=== PATIENT | female | born 1980 | race American Indian/Alaskan Native ===

== ENCOUNTER 2018-10-11 19:46 | Inpatient (IN) | payer OTHER ==
[2018-10-11] MEDS ORDERED: SUBLIMAZE IV PRN (22:41)
[2018-10-11] MEDS ORDERED: STADOL IV PRN (22:41)
[2018-10-11] MEDS ORDERED: XYLOCAINE 2% INFILTRATI ONE (22:41)
[2018-10-11] MEDS ORDERED: BRETHINE IVP PRN (22:41)
[2018-10-11] MEDS ORDERED: BRETHINE SUB-Q PRN (22:41)
[2018-10-11] MEDS ORDERED: MINERAL OIL PO PRN (22:41)
[2018-10-11] MEDS ORDERED: LACTATED RINGERS 1,000 ML IV SCH (23:00)
[2018-10-11] MEDS ORDERED: PITOCin/NS 20 UNIT/1000ML DRIP 20 UNITS/1,000 ML BAG IV SCH (23:00)
[2018-10-11 23:49] LABS: Hematocrit 28.5 % (30.3-42.9); Mean Corpuscular HGB Conc 32 % (30-34); Mean Corpuscular Volume 83 fl (79-97); Platelet Count 242 K/mm3 (140-440); Red Blood Count 3.45 M/mm3 (3.65-5.03)
[2018-10-12] MEDS ORDERED: NARCAN 2 MG/2 ML IV PRN (02:00)
[2018-10-12] MEDS ORDERED: fentaNYL-BUPIV 2 MCG/ML-0.125% 200 MCG/100 ML BAG EPIDURAL SCH (02:00)
[2018-10-12] MEDS ORDERED: XYLOCAINE 2% INFILTRATI ONE (04:28)
--- NOTE | 2018-10-12 04:46 | History and Physical Report ---
History of Present Illness Date of examination: 10/11/18 Date of admission: 10/11/18 23:34 Chief complaint: I'm having contractions History of present illness: Patient is a 37 year old who presents at 39.2 weeks with EDC 10/16/2018. Her course was complicated by late presentation to care in the 2nd trimester and Advanced maternal age. All labs have been normal. Past History Past Medical History: asthma Past Surgical History: no surgical history Social history: - Obstetrical History Expected Date of Delivery: 10/16/18 Actual Gestation: 39 Week(s) 3 Day(s) : 2 Number of Living Children: 1 Medications and Allergies Allergies Allergy/AdvReac Type Severity Reaction Status Date / Time Latex, Natural Rubber Allergy Rash Verified 10/11/18 20:24 Penicillins Allergy Unknown Verified 10/12/18 02:07 blue nitrate gloves AdvReac Rash Uncoded 10/11/18 20:24 Home Medications Medication Instructions Recorded Confirmed Last Taken Type Vit-Fe Fumar-FA [ 1 tab PO QDAY 10/11/18 10/11/18 10/10/18 History Vitamin] Active Meds: Active Medications Butorphanol Tartrate (Stadol) 2 mg IV Q2H PRN PRN Reason: Pain , Severe (7-10) Last Admin: 10/12/18 00:42 Dose: 2 mg Documented by: Ephedrine Sulfate (Ephedrine Sulfate) 10 mg IV Q2M PRN PRN Reason: Hypotension Ephedrine Sulfate (Ephedrine Sulfate) 10 mg IV Q2M PRN PRN Reason: Hypotension Fentanyl (Sublimaze) 100 mcg IV Q2H PRN PRN Reason: Labor Pain Last Admin: 10/11/18 23:52 Dose: 100 mcg Documented by: Lactated Ringer's (Lactated Ringers) 1,000 mls @ 125 mls/hr IV DIRECT KASEY Last Admin: 10/11/18 23:10 Dose: 1,000 mls/hr Documented by: Oxytocin/Sodium Chloride (Pitocin/Ns 20 Unit/1000ml Drip) 20 units in 1,000 mls @ 125 mls/hr IV DIRECT KASEY Fentanyl/Bupivacaine/Sodium Chlor (Fentanyl-Bupiv 2 Mcg/Ml-0.125%) 200 mcg in 100 mls @ 12 mls/hr EPIDURAL TITR KASEY; Protocol Mineral Oil (Mineral Oil) 30 ml PO QHS PRN PRN Reason: Constipation Naloxone HCl (Narcan 2 Mg/2 Ml) 0.2 mg IV Q5M PRN PRN Reason: Respiratory sedation Terbutaline Sulfate (Brethine) 0.25 mg SUB-Q ONCE PRN PRN Reason: Hyperstimulation/Hypertonicity Terbutaline Sulfate (Brethine) 0.25 mg IVP ONCE PRN PRN Reason: Hyperstimulation/Hypertonicity Review of Systems All systems: negative Constitutional: weight gain Genitourinary: contractions Rectal Exam: deferred - Vital Signs Vital signs: Vital Signs Pulse BP 90 135/64 10/11/18 20:23 10/11/18 20:23 Temp Pulse Resp BP Pulse Ox 99.2 F 95 H 18 122/62 98 10/12/18 00:47 10/12/18 04:40 10/12/18 00:47 10/12/18 04:23 10/12/18 04:40 - Physical Exam Breasts: Positive: deferred Cardiovascular: Regular rate, Normal S1, Normal S2 Lungs: Positive: Clear to auscultation, Normal air movement Abdomen: Positive: normal appearance, soft, normal bowel sounds Genitourinary (Female): Positive: normal external genitalia, normal perenium Vulva: both: normal Vagina: Positive: normal moisture - Obstetrical FHR: auscultation normal Cervical Dilatation: 5 Cervical Effacement Percentage: 90 station: -2 Uterine Contraction Pattern: Regular Uterine Tone Measurement Phase: Contraction Uterine Contraction Intensity: Moderate Results Result Diagrams: 10/11/18 23:10 Abnormal lab results 10/11/18 Range/Units 23:10 RBC 3.45 L (3.65-5.03) M/mm3 Hgb 9.0 L (10.1-14.3) gm/dl Hct 28.5 L (30.3-42.9) % MCH 26 L (28-32) pg RDW 16.0 H (13.2-15.2) % All other labs normal. Assessment and Plan IUP at 39.2 in active labor. Admit to L&D. AROM when comfortable. Patient may have epidural. Anticipate .
[2018-10-12] MEDS ORDERED: PITOCin/NS 30 UNIT/500ML 30 UNITS/500 ML BAG IV SCH (06:00)
--- NOTE | 2018-10-12 09:35 | Procedure Note ---
OB Delivery Note - Delivery Date of Delivery: 10/12/18 Surgeon: CHIDI MCINTYRE Estimated blood loss: 200cc - Vaginal Delivery presentation: vertex Delivery position: OA Intrapartum events: none Delivery induction: none Delivery augmentation: rupture of membranes Delivery monitor: external FHT, external uterine Route of delivery: Delivery placenta: spontaneous Delivery cord: 3 umbilical vessels Episiotomy: none Delivery laceration: none Anesthesia: epidural Delivery comments: Viable female delivered at 0909 via with spontaneous cry. placed on maternal abdomen. Weight 7 pounds 9 ounces. Cord clamped and cut when finished pulsating. Placenta delivered spontaneously and intact. No lacerations. Patient tolerated procedure well. Excellent hemostasis. - A at 1 minute: 9 at 5 minutes: 9 Infant Gender: Female (7 pounds 9 ounces)
[2018-10-12] MEDS ORDERED: SODIUM CHLORIDE FLUSH SYRINGE 10 ML IV NR (12:44)
[2018-10-12] MEDS ORDERED: MILK OF MAGNESIA PO PRN (12:44)
[2018-10-12] MEDS ORDERED: PHENERGAN PR PRN (12:44)
[2018-10-12] MEDS ORDERED: TUCKS PAD TP PRN (12:44)
[2018-10-12] MEDS ORDERED: LANSINOH TP PRN (12:44)
[2018-10-12] MEDS ORDERED: IBUPROFEN PO SCH (12:44)
[2018-10-12] MEDS ORDERED: DULCOLAX PR PRN (12:44)
[2018-10-12] MEDS ORDERED: NORCO 5/325 PO PRN (12:44)
[2018-10-12] MEDS ORDERED: ZOFRAN IV PRN (12:44)
[2018-10-12] MEDS ORDERED: BENADRYL PO PRN (12:44)
[2018-10-12] MEDS: PRENATAL VITAMIN PO SCH (13:24)
[2018-10-12] MEDS: COLACE PO SCH ×2 (13:24→21:22)
[2018-10-12] MEDS: FEOSOL PO SCH ×2 (13:25→21:22)
[2018-10-12] MEDS: TYLENOL PO PRN (17:54)
[2018-10-12 20:52] LABS: Hematocrit 26.3 % (30.3-42.9); Hemoglobin 8.2 gm/dl (10.1-14.3)
[2018-10-13] MEDS: FEOSOL PO SCH ×2 (13:03→21:07)
[2018-10-13] MEDS: PRENATAL VITAMIN PO SCH (13:04)
[2018-10-13] MEDS: COLACE PO SCH (21:07)
[2018-10-13] MEDS: TYLENOL PO PRN (23:29)
--- NOTE | 2018-10-14 08:26 | Progress Note ---
Assessment and Plan A/p ppd 2 doing well d/c home Subjective - Subjective Date of service: 10/14/18 Principal diagnosis: Patient reports: appetite normal, voiding normally, pain well controlled, flatus, ambulating normally [place]: doing well Objective - Vital Signs Latest vital signs: Vital Signs Temp Pulse Resp BP BP Pulse Ox 10/14/18 01:58 98 F 79 16 119/62 10/13/18 23:29 18 10/13/18 15:43 98.7 F 82 20 125/72 97 Intake and Output 10/13/18 10/14/18 10/14/18 23:59 07:59 15:59 Intake Total 240 480 Balance 240 480 Intake: Oral 240 Intake, Free Water 480 Other: Total, Intake Amount 240 # Voids Void 1 3 - Exam Breasts: Present: normal Cardiovascular: Present: Regular rate, Normal S1 Lungs: Present: Clear to auscultation, Normal air movement Abdomen: Present: normal appearance, soft, normal bowel sounds. Absent: distention, tenderness, guarding Vulva: both: normal Uterus: Present: normal, firm, fundal height below umbilicus. Absent: bogginess, tenderness Extremities: Present: normal Deep Tendon Reflex Grade: Normal +2 Incision: Present: normal, dry, intact
--- NOTE | 2018-10-14 08:28 | Discharge Summary ---
Providers - Providers Date of Admission: 10/11/18 23:34 Date of discharge: 10/14/18 Attending physician: CHIDI MCINTYRE Primary care physician: CHIDI MCINTYRE Hospitalization Reason for admission: active labor Delivery: Episiotomy: none Laceration: none Incision: normal Other procedures: none complications: none Discharge diagnosis: IUP at term delivered [place] baby: female Hospital course: saidan did well. Delivered vaginal delivery of viable female. routine care. DC home PP 2 Condition at discharge: Good Disposition: DC-01 TO HOME OR SELFCARE Plan - Discharge Medications Prescriptions: Ferrous Sulfate [Feosol 325 MG tab] 325 mg PO BID #60 tablet Ferrous Sulfate 325 mg PO BID #30 tablet.dr Ibuprofen [Motrin] 600 mg PO Q8H PRN #30 tablet PRN Reason: Pain Ibuprofen [Motrin] 800 mg PO Q8HR PRN #40 tablet PRN Reason: Pain, Moderate (4-6) oxyCODONE /ACETAMINOPHEN [Percocet 5/325] 1 tab PO Q6HR PRN #20 tablet PRN Reason: Pain - Provider Discharge Summary Activity: routine, no sex for 6 weeks, no strenuous exercise Diet: routine Instructions: routine Additional instructions: [] Smoking cessation referral if applicable(refer to patient education folder for contact #) [] Refer to [facility] Booklet Call your doctor immediately for: * Fever > 100.5 * Heavy vaginal bleeding ( >1 pad per hour) * Severe persistent headache * Shortness of breath * Reddened, hot, painful area to leg or breast * Drainage or odor from incision. * Keep incision clean and dry at all times and follow doctor's instructions regarding bathing/showering - Follow up plan Follow up: CHIDI MCINTYRE MD [Primary Care Provider] - 11/09/18
[2018-10-14 13:10] VITALS: BP 136/72
== END 2018-10-14 13:45 | disposition home or self-care (01) | DRG 807 ==
LOC: TRG 19:46 → LD 23:34 → OB 10-12 11:58
PROVIDERS: ADMIT Obstetrics & Gynecology; ATTEND Obstetrics & Gynecology
PROC: 10E0XZZ Delivery of Products of Conception, External Approach (ICD-10-PCS; principal; 2018-10-12)
PROC: 3E0R3BZ Introduction of Anesthetic Agent into Spinal Canal, Percutaneous Approach (ICD-10-PCS; 2018-10-12)
PROC: 00HU33Z Insertion of Infusion Device into Spinal Canal, Percutaneous Approach (ICD-10-PCS; 2018-10-12)
DX: O99.52 Diseases of the respiratory system complicating childbirth (principal); Z37.0 Single live birth; Z3A.39 39 weeks gestation of pregnancy; J45.909 Unspecified asthma, uncomplicated
CPT/HCPCS: 36415; 85014; 85018; 85027; 86592; 86850; 86900; 86901; G0378; A6250; J0595; J2590; J3010; J7120